=== PATIENT | female | born 1965 | race Caucasian/White ===

== ENCOUNTER → 2023-07-07 09:09 | Outpatient (REF) | payer BC, SELFPAY | LOC: WDC 09:09 | PROVIDERS: ATTENDING PHYSICIAN Physician Assistant Medical | DX: Z12.31 Encounter for screening mammogram for malignant neoplasm of breast (principal) | CPT/HCPCS: 77063; 77067 ==

== ENCOUNTER → 2023-07-13 09:24 | Outpatient (REF) | payer BC, SELFPAY | LOC: WDC 09:24 | PROVIDERS: ATTENDING PHYSICIAN Physician Assistant Medical | DX: R92.8 Other abnormal and inconclusive findings on diagnostic imaging of breast (principal) | CPT/HCPCS: 76642 ==

== ENCOUNTER 2023-09-26 11:35 | Emergency (ER) | payer BC, SELFPAY ==
[2023-09-26 11:37] VITALS: BP 118/85; BMI 29.2
[2023-09-26 12:39] VITALS: BP 118/81
--- NOTE | 2023-09-26 12:43 | ED.GENMED ---
History of Present Illness
General
Chief Complaint: Chest Pain
Time Seen by Provider: 09/26/23 12:30
Travel History
Have you had any contact with someone who has COVID-19?: No
Do you have any symptoms of coronavirus? Fever > 100 degrees, chills, cough, shortness of breath, sore throat, loss of taste or smell, muscle aches, or headache?: No
History of Present Illness
History of Present Illness:
58-year-old female with history of asthma and tobacco use presents to the emergency department for evaluation of right-sided/central chest discomfort that began approximate 11 AM today, lasting approximately 30 minutes before resolving. Has no pain
currently. She has had similar bouts of pain in the past, was evaluated in this emergency department in April for the same thing. She has no prior history of hypertension, hyperlipidemia, diabetes, or coronary artery disease, does have strong
family history of CAD. Currently denies any dyspnea, extremity paresthesias, leg swelling, or recent fevers.
Past History
Past History
ED Past Medical History: Asthma, Cancer (Melanoma), Hypothyroidism (Graves ds), Other (Sinusitis, IBS, ) and Other (Skin cancer)
ED Past Surgical History: Gynecological (Endometrial ablation), Orthopedic (Spinal fusion) and Other (Sinus surgery X 3, thyroidectomy)
Social History
Tobacco: Former smoker (06/06 ppd)
Alcohol: None
Drug: None
Personal:
Living: with family
Employment: Employed
Review of Systems
Review of Systems
Allergies reviewed?: Yes
All Other Systems: ROS reviewed and negative except as documented in HPI and ROS
Phy Exam
Physical Exam
Physical Exam:
GEN: Well appearing, NAD, WDWN
Eyes: PERRLA, EOMs intact, no scleral icterus
HENT: NCAT, oral mucosa moist
Lungs: CTAB, no wheezes, rales, rhonchi, normal chest wall excursion
Cardiac: RRR, no M/R/G, no peripheral edema. Radial pulses 2+ bilat
Abdomen: S, NT, ND, NABS, no masses or hepatosplenomegaly
Neuro: AO x 3
MSK: No gross deformity or ecchymosis. No edema. No digital clubbing
Skin: No rashes, petechiae. Normal color, no pallor or jaundice.
Psych: Calm, cooperative, proper hygiene
Scores
Heart Score for Chest Pain Patients
STEMI patient?: No
History: Slightly or Non-Suspicious
ECG: Nonspecific Repolarization
Age: >45 - <65 years
Risk Factors: 1 or 2 Risk Factors
Troponin: </= Normal Limit
Heart Score for Chest Pain Patients: 3
Heart Score Risk: 2.5% MACE over next 6 weeks
Course
Orders/Labs/Results
Orders:
Orders
09/26/23 11:36
EKG [Electrocardiogram (*1)] Urgent
Reason for Study: Chest Pain
EKG- Treatment ONCE
09/26/23 12:43
CR Chest - 2 Views Urgent
Comment:
Reason For Exam: chest pain
09/26/23 12:47
Complete Blood Count/With Diff Urgent
Comprehensive Metabolic Panel Urgent
Troponin I Urgent
09/26/23 13:46
Mag Hydrox/Al Hydrox/Simeth [Maalox] 30 ml Phenobarb/Hyoscy/Atropine/Scop [] 10 ml Viscous Lidocaine 2% [Xylocaine Viscous Cup] 10 ml PO NOW
09/26/23 14:05
Mag Hydrox/Al Hydrox/Simeth [Maalox] 30 ml .ROUTE .STK-MED ONE
Phenobarb/Hyoscy/Atropine/Scop [] 10 ml .ROUTE .STK-MED ONE
09/26/23 14:06
Viscous Lidocaine 2% [Xylocaine Viscous Cup] 15 ml .ROUTE .STK-MED ONE
09/26/23 15:08
Electrocardiogram (*1) Urgent
Reason for Study: Chest Pain
EKG- Treatment ONCE
09/26/23 15:13
Troponin I Routine
Abnormal Lab Results
09/26/23
12:47
Absolute Lymphs (auto) 1.1 L 10^3/uL
(1.2-3.4)
Lymphocytes % 19.7 L %
(20.5-51.1)
Monocytes % 11.2 H %
(1.7-9.3)
Sodium 134 L mmol/L
(135-145)
BUN 28 H mg/dl
(7-17)
AST 47 H U/L
(14-36)
ALT 39 H U/L
(0-35)
09/26/23 12:47
09/26/23 12:47
Vital Signs
Initial and Last Documented VS:
Initial Vital Signs
Temp Pulse Resp BP Pulse Ox
98 F 86 16 118/85 100
09/26/23 11:37 09/26/23 11:37 09/26/23 11:37 09/26/23 11:37 09/26/23 11:37
Last Documented Vital Signs
Temp Pulse Resp BP Pulse Ox
98 F 73 17 103/63 98
09/26/23 11:37 09/26/23 16:30 09/26/23 16:30 09/26/23 16:00 09/26/23 16:15
MDM/Problems Addressed
MDM/Problems Addressed:
Initial EKG independently interpreted by me shows normal sinus rhythm at a rate of [address] depressions laterally that appear to be comparable to past EKGs, QTc of 411. Repeat EKG independent interpreted by me shows no acute changes
58-year-old female presents with acute onset of nonexertional chest pain that was all prior to arrival. She has no initial EKG changes concerning for ischemia and initial and repeat troponins are negative. Overall I am reassured this does not
represent ACS particular given that she reports improvement after a GI cocktail. She is convinced that this may be a gastrointestinal source of symptoms. Recommend outpatient cardiology follow-up given that she does have some degree of
cardiovascular risk factors however do not feel this needs to be expedited given the low likelihood for ACS
*Critical Care Note
Total Time (30-74mins, 75-104mins- exclusive of procedures): Not Applicable
ED Attending Note
-
Portions of this chart may have been created with voice recognition software.� Occasional wrong word or��sound alike� substitutions may have occurred due to the inherent limitations of voice recognition software.
Discharge Plan
Departure
Patient Disposition: Home (Routine Discharge)
Date of Disposition: 09/26/23
Time of Disposition: 15:56
Patient with high blood pressure during this ER visit?: No
Discharge Problem:
Atypical chest pain
Instructions: Acid Reflux and GERD in Adults (DC)
Prescriptions:
New
pantoprazole 40 mg tablet,delayed release (DR/EC)
40 mg PO DAILY Qty: 30 0RF
No Action
sulfamethoxazole-trimethoprim 1 TABLET tablet
1 tab PO BID Qty: 14 0RF
chlorhexidine gluconate [Peridex] 0.12 % mouthwash
15 ml buccal BID Qty: 1200 0RF
hydrocodone-acetaminophen 5-325 mg tablet
1 - 2 tab PO Q8H PRN (Reason: Pain) Qty: 12 0RF
Referrals:
Elmira Guillen PA-C [Family Provider] -
Elfego Stephenson MD [Active] -
Activity Restrictions/Additional Instructions:
Your pain is more likely due to acid reflux and esophageal inflammation however we cannot completely discount the possibility of heart involvement. Please follow-up with the house mover helper listed on the paperwork at your leisure
Interventions
Interventions:
*Risk Screen - Suicide Last Done: 09/26/23 16:45
*General Assessment Last Done: 09/26/23 16:45
*Neglect/Abuse Screening Last Done: 09/26/23 16:45
ED- Fall Risk Assessment Last Done: 09/26/23 11:37
*ED COVID-19 Vaccine History Last Done: 09/26/23 11:37
*Nursing Disposition Last Done: 09/26/23 16:45
ED- Cardiac Assessment Last Done: 09/26/23 15:18
Discharge Date and Time
Discharge Date/Time: 09/26/23 16:46
Print Language: RUSSIAN
[2023-09-26 12:54] LABS: % Basophils 0.9 % (0-2); % Eosinophils 5.3 % (0-6); % Immature Granulocytes 0.4 % (0-0.5); % Lymphocytes 19.7 % (20.5-51.1); % Monocytes 11.2 % (1.7-9.3); % Neutrophils 62.5 % (42.2-75.2); Absolute Basophils 0.1 10^3/uL (0-0.2); Absolute Eosinophils 0.3 10^3/uL (0-0.7); Absolute Lymphocytes 1.1 10^3/uL (1.2-3.4); Absolute Monocytes 0.6 10^3/uL (0.1-0.6); Absolute Neutrophils 3.5 10^3/uL (1.4-6.5); Hematocrit 40.7 % (37.0-47.0); Hemoglobin 13.8 g/dL (12.0-16.0); Mean Corp Hgb Conc. 33.9 g/dL (33.0-37.0); Mean Corpuscular Hgb 30.1 pg (27.0-31.0); Mean Corpuscular Volume 88.7 fL (81.0-99.0); Mean Platelet Volume 9.6 fL (7.4-10.4); Nucleated Red Blood Cells % 0 %; Platelet Count 226 10^3/uL (130-400); Red Blood Cell Count 4.59 10^6/uL (4.20-5.40); Red Cell Dist. Width 12.6 % (11.5-14.5); White Blood Cell Count 5.6 10^3/uL (4.8-10.8)
[2023-09-26 13:00] VITALS: BP 94/58
[2023-09-26 13:15] LABS: ALT (SGPT) 39 U/L (0-35); AST (SGOT) 47 U/L (14-36); Albumin 4.4 g/dl (3.5-5.0); Alkaline Phosphatase 82 U/L (38-126); Blood Urea Nitrogen 28 mg/dl (7-17); Calcium 9.6 mg/dl (8.4-10.2); Carbon Dioxide 28 mmol/L (22-30); Chloride 102 mmol/L (98-107); Estimated Creatinine Clearance 76 ml/min; Glucose 87 mg/dl (70-99); Potassium 4.3 mmol/L (3.5-5.1); Sodium 134 mmol/L (135-145); Total Bilirubin 0.5 mg/dl (0.2-1.3); Total Protein 6.9 g/dl (6.3-8.2); eGFR > 60.00
[2023-09-26 13:19] LABS: Troponin I < 0.012 ng/ml
[2023-09-26] MEDS: MAALOX 50 PO (14:09)
[2023-09-26 14:12] VITALS: BP 114/48
[2023-09-26 15:00] VITALS: BP 102/67
[2023-09-26 15:51] LABS: Troponin I < 0.012 ng/ml
[2023-09-26 16:00] VITALS: BP 103/63
== END 2023-09-26 16:46 | disposition home or self-care (01) ==
LOC: EMR 11:35
PROVIDERS: Physician Assistant; EMERGENCY PHYSICIAN Emergency Medicine; FAMILY PHYSICIAN Physician Assistant Medical
DX: R07.89 Other chest pain (principal); J45.909 Unspecified asthma, uncomplicated; Z87.891 Personal history of nicotine dependence
CPT/HCPCS: 99285; 71046; 80053; 84484; 85025; 93005

== ENCOUNTER → 2024-01-09 12:44 | Day surgery (SDC) | payer BC, SELFPAY | LOC: GI 12:44 | PROVIDERS: ATTENDING PHYSICIAN Surgery | DX: Z12.11 Encounter for screening for malignant neoplasm of colon (principal); K57.30 Diverticulosis of large intestine without perforation or abscess without bleeding; Z87.19 Personal history of other diseases of the digestive system | CPT/HCPCS: G0105 ==

== ENCOUNTER 2024-07-06 14:54 | Emergency (ER) | payer SELFPAY ==
[2024-07-06 15:00] VITALS: BP 142/89
--- NOTE | 2024-07-06 15:35 | ED.MUSCINJ ---
HPI-Injury
General
Chief Complaint: Musculo-Skeletal Complaint
Source: patient
Exam Limitations: none
Time Seen by Provider: 07/06/24 15:25
Nursing documentation reviewed up to this point in time: agreed with
History of Present Illness-Injury
Initial Injury comments:
58-year-old female with no clinically significant past medical history states 5 days ago, in her work parking lot she tripped over a speed and describes FOOSH of both hands. She has had pain in the ulnar aspect of the left wrist since with
radiation of pain up her arm sometimes to her shoulder. She denies hitting her head or any other injury.
Past History
Past History
ED Past Medical History: Asthma, Cancer (Melanoma), Hypothyroidism (Graves ds), Other (Sinusitis, IBS, ) and Other (Skin cancer)
ED Past Surgical History: Gynecological (Endometrial ablation), Orthopedic (Spinal fusion) and Other (Sinus surgery X 3, thyroidectomy)
Social History
Tobacco: Former smoker (06/06 ppd)
Alcohol: None
Drug: None
Personal:
Living: with family
Employment: Employed
Review of Systems
Review of Systems
Allergies reviewed?: Yes
All Other Systems: ROS reviewed and negative except as documented in HPI and ROS
Musculoskeletal: Reports other (Pain left wrist)
Neurological: Denies weakness or numbness
Musculoskeletal Injury Exam
Musculoskeletal Injury Exam
Left Wrist:
Pain with Movement?: Mild (Along the ulnar aspect of her wrist)
Tender to palpation?: Mild
Soft tissue swelling?: None
External deformity and angulation?: None
Strain- Sprain- Tear (Connective tissue injury)?: Mild
Range of motion: Full
Distal skin color and temperature: normal-warm & good color
Capillary Refill: normal
Normal distal neurovascular exam?: Yes
Phy Exam
Physical Exam
Physical Exam:
PHYSICAL EXAMINATION:
General: no apparent distress, not acutely ill
Neuro: alert and oriented.
Psychiatric: well kept. interactive and cooperative
Musculoskeletal: Moves with ease
Skin: Warm, pink.
Injury Course
Orders/Labs/Results
Orders:
Orders
07/06/24 15:05
CR Wrist - Left Min 3 Views Urgent
Comment:
Reason For Exam: fall on left wrist
MDM/Problems Addressed
Differential Diagnosis Includes:
Fracture, sprain wrist
MDM/Problems Addressed:
58-year-old female with no clinically significant past medical history states 5 days ago, in her work parking lot she tripped over a speed and describes FOOSH of both hands. She has had pain in the ulnar aspect of the left wrist since with
radiation of pain up her arm sometimes to her shoulder. She denies hitting her head or any other injury.
X-ray of wrist initially read by this examiner, no fracture noted
Patient has her own Velcro wrist splint which she states helps the wrist feel more comfortable.
She has no bony tenderness about the shoulder, upper arm, elbow or forearm, no indication for imaging
*Critical Care Note
Total Time (30-74mins, 75-104mins- exclusive of procedures): Not Applicable
ED Attending Note
-
Portions of this chart may have been created with voice recognition software.� Occasional wrong word or��sound alike� substitutions may have occurred due to the inherent limitations of voice recognition software.
Discharge Plan
Departure
Patient Disposition: Home (Routine Discharge)
Date of Disposition: 07/06/24
Time of Disposition: 15:35
Patient with high blood pressure during this ER visit?: No
Condition: Good
Discharge Problem:
Left wrist sprain
Instructions: Using Cold for Pain, Wrist Sprain ED
Prescriptions:
No Action
sulfamethoxazole-trimethoprim 1 TABLET tablet
1 tab PO BID Qty: 14 0RF
chlorhexidine gluconate [Peridex] 0.12 % mouthwash
15 ml buccal BID Qty: 1200 0RF
hydrocodone-acetaminophen 5-325 mg tablet
1 - 2 tab PO Q8H PRN (Reason: Pain) Qty: 12 0RF
pantoprazole 40 mg tablet,delayed release (DR/EC)
40 mg PO DAILY Qty: 30 0RF
Referrals:
Farooq Schumacher MD [Active] - As needed
Activity Restrictions/Additional Instructions:
As we discussed, I see no fracture on your x-ray.
Tylenol or ibuprofen as needed for pain
Continue to wear your wrist splint until you can move the wrist comfortably
See the orthopedic doctor if your wrist is not a lot better in 1 week or not 100% better in 3 weeks.
Interventions
Interventions:
*Risk Screen - Suicide Last Done: 07/06/24 15:04
*General Assessment Last Done: 07/06/24 15:04
*Neglect/Abuse Screening Last Done: 07/06/24 15:04
*ED COVID-19 Vaccine History Last Done: 07/06/24 15:05
Discharge Date and Time
Print Language: GREENLANDIC
== END 2024-07-06 16:00 | disposition home or self-care (01) ==
LOC: EMR 14:54
PROVIDERS: EMERGENCY PHYSICIAN Emergency Medicine; FAMILY PHYSICIAN Physician Assistant Medical
DX: S63.502A Unspecified sprain of left wrist, initial encounter (principal); W18.09XA Striking against other object with subsequent fall, initial encounter; J45.909 Unspecified asthma, uncomplicated; E03.9 Hypothyroidism, unspecified; Z85.820 Personal history of malignant melanoma of skin; Z87.891 Personal history of nicotine dependence; Z98.1 Arthrodesis status
CPT/HCPCS: 99283; 73110

== ENCOUNTER → 2025-01-08 08:46 | Outpatient (REF) | payer BC, SELFPAY | LOC: HWRAD 08:46 | PROVIDERS: ATTENDING PHYSICIAN Obstetrics & Gynecology; FAMILY PHYSICIAN Physician Assistant Medical | DX: N95.0 Postmenopausal bleeding (principal) | CPT/HCPCS: 76830; 76856 ==

== ENCOUNTER → 2025-01-10 10:52 | Outpatient (REF) | payer BC, SELFPAY | LOC: WDC 10:52 | PROVIDERS: ATTENDING PHYSICIAN Physician Assistant Medical | DX: Z12.31 Encounter for screening mammogram for malignant neoplasm of breast (principal) | CPT/HCPCS: 77063; 77067 ==